=== PATIENT | female | born 1955 | race Hispanic/Latino ===

== ENCOUNTER 2019-05-20 08:04 | Outpatient (CLI) | payer BC ==
--- NOTE | 2019-05-20 09:28 | ULT ---
HEPATIC ULTRASOUND INCLUDING COLOR AND SPECTRAL DOPPLER IMAGING: Date: 05/20/19 HISTORY: Fatty liver. FINDINGS: Liver echogenicity is slightly coarse. Status post cholecystectomy. Common bile duct 0.3 cm. No focal liver mass. Spleen is unremarkable. Visualized pancreas is unremarkable. Antegrade hepatic and portal venous flow. IMPRESSION: Somewhat heterogeneous liver echogenicity. Status post cholecystectomy without ductal dilatation. Ant egrade hepatic and portal venous flow. POS: OFF
== END 2019-05-20 08:05 | disposition home or self-care (01) ==
LOC: SCSULT 08:04
PROVIDERS: ATTEND Internal Medicine Gastroenterology
DX: D12.6 Benign neoplasm of colon, unspecified (principal); K76.0 Fatty (change of) liver, not elsewhere classified; R11.2 Nausea with vomiting, unspecified; Z90.49 Acquired absence of other specified parts of digestive tract
CPT/HCPCS: 76705